=== PATIENT | female | born 1985 | race African-American/Black ===

== ENCOUNTER 2018-11-19 15:14 | Day surgery (SDC) | payer OTHER ==
[~2018-11-19] VITALS: Ht 175.3 cm; Wt 108.9 kg
[2018-11-19] MEDS ORDERED: SODIUM CHLORIDE 0.9% 1,000 ML IVB ONE (16:26)
[2018-11-19 17:11] LABS: Basophils # (auto) 0 uL; Eosinophils # (auto) 0.3 uL; Mean Corpuscular Hemoglobin 24.3 pg (28.0-32.0); Monocytes # (auto) 0.7 uL; Neutrophils # (auto) 4.8 uL
[2018-11-19 17:13] LABS: Basophils % (auto) 0.5 % (0.0-2.0); Hematocrit 37.9 % (36.0-46.0); Hemoglobin 12.3 g/dL (12.2-16.2); Lymphocytes # (auto) 1.1 uL; Lymphocytes % (auto) 15.6 % (10.0-50.0); Mean Corpuscular Hgb Conc. 32.4 g/dL (32.0-36.0); Mean Corpuscular Volume 74.9 fL (80.0-100.0); Monocytes % (auto) 10.5 % (0.0-12.0); Neutrophils % (auto) 69.4 % (37.0-80.0); Nucleated Red Blood Cells % 0.1 %; Platelet Count (auto) 218 10^3/uL (140-450); Red Blood Cells 5.06 10^6/uL (4.0-5.20); White Blood Cell 6.9 10^3/uL (4.4-10.8)
[2018-11-19 17:16] LABS: Red Cell Distribution Width 24.7 % (11.8-14.3)
[2018-11-19 17:24] LABS: INR 0.94 (0.9-1.15); Partial Thromboplastin Time 28.2 sec (23.78-33.04); Prothrombin Time 10.1 sec (9.27-12.13)
[2018-11-19 17:36] LABS: Calcium 8.5 mg/dL (8.5-10.1); Potassium 3.8 mmol/L (3.5-5.1)
[2018-11-19 17:41] LABS: BUN/Creatinine Ratio 11.9; Bilirubin, Total 0.3 mg/dL (0.2-1.0); Total Protein 7.1 g/dL (6.4-8.2)
[2018-11-19] MEDS ORDERED: LACT. RINGERS/OXYTOCIN 20UNITS 1,000 ML IV SCH (19:49)
[2018-11-19] MEDS ORDERED: LACT. RINGERS/OXYTOCIN 20UNITS 1,000 ML IV ONE (19:56)
[2018-11-19] MEDS ORDERED: MORPHINE SULFATE 4 MG/ML SYR/VIAL IV ONE (20:00)
[2018-11-19] MEDS ORDERED: ONDANSETRON HCL 4 MG/2 ML VIAL IV ONE (20:00)
[2018-11-19] MEDS ORDERED: METHYLERGONOVINE MALEATE 0.2 MG/ML AMP IM ONE (20:00)
[2018-11-19 23:14] LABS: Basophils # (auto) 0 uL; Basophils % (auto) 0.6 % (0.0-2.0); Eosinophils # (auto) 0.3 uL; Eosinophils % (auto) 3.8 % (0.0-7.0); Hemoglobin 10.9 g/dL (12.2-16.2); Lymphocytes % (auto) 15.5 % (10.0-50.0); Mean Corpuscular Volume 74.9 fL (80.0-100.0); Monocytes # (auto) 0.6 uL; Neutrophils # (auto) 4.7 uL; Neutrophils % (auto) 71.1 % (37.0-80.0); Nucleated Red Blood Cells % 0.1 %; Platelet Count (auto) 188 10^3/uL (140-450); Red Blood Cells 4.54 10^6/uL (4.0-5.20); White Blood Cell 6.7 10^3/uL (4.4-10.8)
[2018-11-19 23:16] LABS: Red Cell Distribution Width 24.4 % (11.8-14.3)
[2018-11-20] MEDS ORDERED: ceFAZolin 1GM/50ML 50 ML IV ONE (00:39)
[2018-11-20] MEDS ORDERED: ONDANSETRON HCL 4 MG/2 ML VIAL ONE (00:44)
[2018-11-20] MEDS ORDERED: METOCLOPRAMIDE HCL 5MG/ml INJ 2ml VIAL ONE (00:44)
[2018-11-20] MEDS ORDERED: DEXAMETHASONE SOD PHOS 10MG/1ML VIAL INJ ONE (00:44)
[2018-11-20] MEDS ORDERED: PROPOFOL 10 MG/ML 20 ML IV ONE (00:44)
[2018-11-20] MEDS ORDERED: LIDOCAINE HCL 2 %PF INJ 10ML AMP IJ ONE (00:46)
[2018-11-20] MEDS ORDERED: fentaNYL CITRATE 100 MCG/2 ML VL ONE (00:49)
[2018-11-20] MEDS ORDERED: OXYTOCIN 10 UNIT/ML 10ML VIAL ONE (00:58)
[2018-11-20] MEDS ORDERED: LACTATED RINGER'S 1,000 ML IV SCH (01:19)
[2018-11-20] MEDS ORDERED: LABETALOL HCL 5 MG/ML 4ML SYRINGE IV PRN (01:30)
[2018-11-20] MEDS ORDERED: ONDANSETRON HCL 4 MG/2 ML VIAL IV PRN (01:30)
[2018-11-20] MEDS ORDERED: HYDROmorphone HCL 2 MG/ML VL IV PRN (01:30)
[2018-11-20] MEDS ORDERED: MORPHINE SULFATE 4 MG/ML SYR/VIAL IV PRN (01:45)
[2018-11-20] MEDS ORDERED: NITROGLYCERIN 0.4 MG SL TAB SL PRN (01:45)
[2018-11-20] MEDS ORDERED: ONDANSETRON HCL 4 MG/2 ML VIAL IV ONE (02:00)
[2018-11-20 03:30] VITALS: BP 111/71
== END 2018-11-20 01:52 | disposition home or self-care (01) ==
LOC: EDBD 15:14 → ER 15:19 → SUR 11-20 00:38 → ER 11-20 01:52 → SUR 11-20 01:52
PROVIDERS: ATTEND Specialist
DX: O03.1 Delayed or excessive hemorrhage following incomplete spontaneous abortion (principal); O03.35 Other venous complications following incomplete spontaneous abortion; I86.8 Varicose veins of other specified sites; D64.9 Anemia, unspecified; J45.909 Unspecified asthma, uncomplicated; Z98.890 Other specified postprocedural states
CPT/HCPCS: 36415; 59812; 76856; 80053; 85025; 85610; 85730; 86850; 86900; 86901; 88305; J0690; J1100; J1170; J2210; J2270; J2405; J2590; J2704; J2765; J3010; J7030